=== PATIENT | female | born 1990 | race Caucasian/White ===

== ENCOUNTER 2022-11-26 21:49 | Emergency (ER) | payer OTHER ==
[2022-11-26 22:08] VITALS: BMI 29.6
[2022-11-27 00:31] LABS: URINE APPEARANCE TURBID; URINE BILIRUBIN NEGATIVE (NEGATIVE); URINE COLOR YELLOW; URINE GLUCOSE (UA) NEGATIVE (NEGATIVE); URINE KETONE NEGATIVE (NEGATIVE); URINE LEUK ESTERASE NEGATIVE (NEGATIVE); URINE NITRITE NEGATIVE (NEGATIVE); URINE PROTEIN NEGATIVE (NEGATIVE)
[2022-11-27 01:28] VITALS: BP 114/70; PULSE 78; RESP 16; TEMP 98.7
== END 2022-11-27 03:18 | disposition home or self-care (01) ==
LOC: JER 21:49
DX: M54.50 Low back pain, unspecified (principal); R51.9 Headache, unspecified; R35.89 Other polyuria
CPT/HCPCS: 74176-TC; 81003; 84703; 99284-25

== ENCOUNTER 2023-04-14 15:18 | Emergency (ER) | payer OTHER ==
[2023-04-14 15:21] VITALS: BP 130/76; PULSE 81; RESP 18; TEMP 98; BMI 28.9
[2023-04-14] MEDS ORDERED: ACETAMINOPHEN 500 MG TABLET (FP) PO ONE (16:55)
[2023-04-14] MEDS ORDERED: KETOROLAC TROMETHAMINE 30 MG/1 ML VIAL IM ONE (16:55)
[2023-04-14] MEDS ORDERED: ACETAMINOPHEN 500 MG TABLET (FP) ONE (16:59)
[2023-04-14] MEDS ORDERED: KETOROLAC TROMETHAMINE 30 MG/1 ML VIAL ONE (16:59)
== END 2023-04-14 18:41 | disposition home or self-care (01) ==
LOC: JERFT 15:18
PROC: 3E0233Z Introduction of Anti-inflammatory into Muscle, Percutaneous Approach (ICD-10-PCS; principal; 2023-04-14)
DX: M25.512 Pain in left shoulder (principal)
CPT/HCPCS: 73030-TC-LT-FY; 93005; 93010; 99284-25

== ENCOUNTER 2023-04-24 17:09 | Emergency (ER) | payer SELFPAY ==
[2023-04-24 17:34] VITALS: BP 120/78; PULSE 104; RESP 19; TEMP 99.9; BMI 24.7
[2023-04-24] MEDS ORDERED: KETOROLAC TROMETHAMINE 30 MG/1 ML VIAL IM ONE (18:31)
[2023-04-24] MEDS ORDERED: KETOROLAC TROMETHAMINE 30 MG/1 ML VIAL ONE (18:31)
== END 2023-04-24 18:38 | disposition home or self-care (01) ==
LOC: JER 17:09
PROC: 3E0233Z Introduction of Anti-inflammatory into Muscle, Percutaneous Approach (ICD-10-PCS; principal; 2023-04-24)
DX: R05.9 Cough, unspecified (principal); R50.9 Fever, unspecified; R09.81 Nasal congestion; R11.0 Nausea; R51.9 Headache, unspecified; U07.1 COVID-19
CPT/HCPCS: 0241U-QW; 99284-25

== ENCOUNTER 2023-11-13 15:49 | Emergency (ER) | payer OTHER ==
[2023-11-13 15:59] VITALS: BP 110/61; PULSE 76; RESP 18; TEMP 98.3; BMI 25.8
== END 2023-11-13 17:52 | disposition home or self-care (01) ==
LOC: JERFT 15:49
DX: L23.9 Allergic contact dermatitis, unspecified cause (principal); L29.9 Pruritus, unspecified; R21 Rash and other nonspecific skin eruption
CPT/HCPCS: 99283-25